=== PATIENT | female | born 1940 | race American Indian/Alaskan Native ===

== ENCOUNTER 2018-07-28 09:28 | Outpatient (CLI) | payer MEDICARE ==
--- NOTE | 2018-07-29 07:46 | PET Report ---
PET SB TO MT SUBSEQUENT: HISTORY: Left breast cancer, pain in left axillary region. TECHNIQUE: 15.2 millicuries F-18 FDG was administered intravenously. Noncontrast CT images and PET images were obtained from the skull base to the proximal thighs. Fused images were reviewed on a workstation. The patient's blood glucose level measured 99. COMPARISON: None at this facility. FINDINGS: BRAIN: physiologic FDG uptake in the imaged brain. NECK: physiologic FDG uptake. CHEST WALL: physiologic FDG uptake. Surgical scar in the lateral left breast and left axillary lymph node dissection changes are identified. There is no evidence for recurrent breast mass, chest wall mass or axillary adenopathy. No inflammatory changes. MEDIASTINUM: physiologic FDG uptake. The thyroid gland is moderately enlarged and nodular suggesting a multinodular goiter. Diffuse aortic calcifications. A 4.2 cm AAA is identified. LUNGS: physiologic FDG uptake. PLEURA/PERICARDIUM: physiologic FDG uptake. THORACIC LYMPH NODES: physiologic FDG uptake. HEPATOBILIARY: physiologic FDG uptake. Mean liver SUV measures 3.4. PANCREAS: physiologic FDG uptake. SPLEEN: physiologic FDG uptake. ADRENAL GLANDS: physiologic FDG uptake. KIDNEYS/RENAL COLLECTING SYSTEMS: physiologic FDG uptake. Large right renal cyst measures 7.3 cm. Large left renal cyst measures 5.5 cm. A 5 mm calyceal stone is noted in the inferior right kidney. Punctate calyceal stone is noted in the superior left kidney. No hydronephrosis. The ureters and bladder are unremarkable. BOWEL/MESENTERY: physiologic FDG uptake. Mild descending colon diverticulosis is noted. PELVIC VISCERA: physiologic FDG uptake. Hysterectomy changes are suspected. ABDOMINAL/PELVIC LYMPH NODES: physiologic FDG uptake. MUSCULOSKELETAL: physiologic FDG uptake. No suspicious bony lesions are identified. IMPRESSION: Negative PET/CT. Surgical changes in the left breast and left axilla are noted. No evidence for disease recurrence or metastasis. No clear explanation for left axillary pain.
== END 2018-07-28 09:29 | disposition home or self-care (01) ==
LOC: PET 09:28
PROVIDERS: ATTEND Internal Medicine Hematology & Oncology
DX: C50.312 Malignant neoplasm of lower-inner quadrant of left female breast (principal); I10 Essential (primary) hypertension; Z98.890 Other specified postprocedural states; Z91.041 Radiographic dye allergy status; Z79.899 Other long term (current) drug therapy
CPT/HCPCS: 78815; 82962; A9552